=== PATIENT | male | born 1960 | race American Indian/Alaskan Native ===

== ENCOUNTER 2021-02-05 08:36 | Emergency (ER) | payer OTHER ==
[~2021-02-05] VITALS: Ht 167.6 cm; Wt 73.0 kg
[2021-02-05 09:26] LABS: PLATELET COUNT 271 K/uL (142-355)
[2021-02-05 09:38] LABS: POTASSIUM 3.6 mmol/L (3.6-5.2)
[2021-02-05 11:49] VITALS: BP 158/72; TEMP 98
== END 2021-02-05 12:54 | disposition short-term general hospital (02) ==
LOC: ED 08:36
PROVIDERS: Emergency Medicine Emergency Medical Services
DX: R13.11 Dysphagia, oral phase (principal)
CPT/HCPCS: 80048; 85027; 87651; 96360; 96374; 99284; J1100; Q9963

== ENCOUNTER 2021-05-27 10:19 | Emergency (ER) | payer BC ==
[~2021-05-27] VITALS: Ht 167.6 cm; Wt 70.3 kg
[2021-05-27 10:25] VITALS: TEMP 97.8
[2021-05-27 11:25] VITALS: BP 130/83
== END 2021-05-27 11:25 | disposition home or self-care (01) ==
LOC: ED 10:19
DX: C14.0 Malignant neoplasm of pharynx, unspecified (principal); R13.0 Aphagia
CPT/HCPCS: 99281